=== PATIENT | male | born 1980 | race Caucasian/White ===

== ENCOUNTER 2018-04-13 06:40 | Observation (INO) ==
[2018-04-13 07:39] LABS: Basophils % 0.9 %; Eosinophils # 0.2 K/mcL (0.0-0.6); Eosinophils % 3.6 %; Hematocrit 51.9 % (37.5-50.1); Hemoglobin 17.3 g/dL (12.9-16.9); Immature Granulocytes % 0.2 % (0-4); Lymphocytes # 1.5 K/mcL (0.6-4.6); Lymphocytes % 32.3 %; Mean Corpuscular HGB Conc 33.3 g/dL (31.6-35.5); Mean Corpuscular Volume 90.1 fL (83.0-100.0); Mean Platelet Volume 10.4 fL (9.4-12.4); Monocytes # 0.3 K/mcL (0.0-1.3); Neutrophils # 2.6 K/mcL (1.6-8.9); Platelet Count 237 K/mcL (140-400); Red Blood Count 5.76 M/mcL (4.19-5.50); Red Cell Distribution Width 12.5 % (11.5-14.5)
--- NOTE | 2018-04-13 07:40 | Emergency Department Note ---
Disposition Clinical Impression: Nephrolithiasis, Hydroureteronephrosis, Allergy to antibiotic, Right distal ureteral calculus, UTI (urinary tract infection) Disposition: Admitted As Inpatient Condition: Fair General Adult HPI - General Chief complaint: ED Abdominal Pain Stated complaint: abd pain/rt hip/back pain Time Seen by Provider: 04/13/18 07:25 Source: patient Limitations: no limitations Nursing Notes Reviewed: Yes Vital Signs Reviewed: Yes - History of Present Illness HPI Narrative: 37 y/o male with history of nephrolithiasis presents to the ED after he woke from sleep three hours ago with suprapubic pain that has since begun to radiate to his right flank. Patient states that his pain is achy and rates it as 8/10 in severity. Patient states he fell well yesterday and has not had any abdominal surgeries in the past. He states that he has had several kidney stones in the past with the last occurring in 2012. Patient has history of depression and anxiety and states he has been compliant with his medications. Patient denies fevers, chills, sore throat, congestion, chest pain, dyspnea, urinary changes or discharge, bowel changes, nausea, vomiting. Onset (ago): hour(s) (3) Location: abdomen, pelvis Radiation: flank Pain Severity: severe Pain Scale: 9 Quality: aching Consistency: constant Improves with: nothing Worsens with: other (urination) Associated symptoms: Denies: chest pain, cough, diaphoresis, fever/chills, headaches, nausea/vomiting, shortness of breath, weakness Treatments Prior to Arrival: none - Related Data Home Medications Medication Instructions Recorded Confirmed Gabapentin [Neurontin] 800 mg PO TID 02/19/16 04/13/18 clonazePAM [Klonopin] 1 mg PO TID PRN 02/19/16 04/13/18 Duloxetine HCl [Cymbalta] 60 mg PO DAILY 04/13/18 04/13/18 RX: traZODone [TraZODone] 50 mg PO HS 04/13/18 04/13/18 Allergies Allergy/AdvReac Type Severity Reaction Status Date / Time ceftriaxone [From Rocephin] Allergy Itching Verified 04/13/18 10:23 Past Medical History - Past Medical History Medical history: Reports: non-contributory, kidney stones, other Psychiatric history: Reports: anxiety, depression, previous psychiatric hospitalization - Social History Smoking Status: Current some day smoker Smokeless Tobacco Status: No Alcohol use: Reports: none Drug use: Reports: marijuana Physical Exam - General Limitations: no limitations General appearance: alert, in no apparent distress Course Vital Signs Temperature 98.0 F 04/13/18 06:44 Pulse Rate 110 04/13/18 06:44 Respiratory Rate 18 04/13/18 06:44 Blood Pressure 118/79 04/13/18 06:44 O2 Sat by Pulse Oximetry 100 04/13/18 06:44 Temperature 98.0 F 04/13/18 06:44 Pulse Rate 110 04/13/18 06:44 Respiratory Rate 18 04/13/18 06:44 Blood Pressure 118/79 04/13/18 06:44 O2 Sat by Pulse Oximetry 100 04/13/18 06:44 Oxygen Delivery Oxygen Delivery Room Air Medical Decision Making - Lab Data Result diagrams: 04/13/18 07:13 04/13/18 07:13
[2018-04-13] MEDS ORDERED: Ketorolac 15 MG/ML VIAL IVP ONE (07:57)
--- NOTE | 2018-04-13 08:31 | Emergency Department Note ---
Disposition Clinical Impression: Nephrolithiasis, Hydroureteronephrosis, Allergy to antibiotic, Right distal ureteral calculus, UTI (urinary tract infection) Disposition: Admitted As Inpatient Condition: Fair Referrals: NONE,PCP [Primary Care Provider] - Time of Disposition: 10:36 Abdominal Pain HPI - General Chief Complaint: ED Abdominal Pain Stated Complaint: abd pain/rt hip/back pain Time Seen by Provider: 04/13/18 07:25 Source: patient Limitations: no limitations Vital Signs Reviewed: Yes (Tachycardic on presentation, Afebrile, normotensive, not tachypneic,) - History of Present Illness HPI Narrative: Is a 37-year-old male with past medical history of nephrolithiasis with his most recent stone in 2012 patient's to the ED from home with acute onset sharp suprapubic pain. Patient states the pain radiates to his right flank and is severe rating it at an 8 out of 10 with intermittent exacerbations with pain which is 10 out of 10. He says that the pain started proximally 4 AM this morning and woke him from his sleep. He states that his presentation is similar to his previous renal stones. He says in the past he has past 2-3 kidney stones however he has had one which required intervention however he cannot remember the exact intervention. He states the pain is when urinating, he has not noticed any hematuria at home however has had one episode of hematuria while in the ED today. He has not tried any medications for this at home. He denies any recent fevers, chills, nausea, vomiting, diarrhea, or constipation. He does report having one social partner 2 weeks ago that he used protection. Review of records is taken for anxiety, depression, and past suicidal ideation. Patient is on home Klonopin, Cymbalta, trazodone, and gabapentin and states that he has been taking his medications as prescribed. Pt Subjective Complaint: abdominal pain (ubic), flank pain (suprapubic pain) Onset (ago): hour(s) Consistency: constant Location: suprapubic Pain Severity: severe Pain Scale: 9 Quality: sharp Radiation: R flank Improves with: nothing Worsens with: movement, other (Urination) Context: history of similar episodes Treatments prior to arrival: none - Related Data Home Medications Medication Instructions Recorded Confirmed Gabapentin [Neurontin] 800 mg PO QID 02/19/16 02/19/16 clonazePAM [Klonopin] 1 mg PO TID PRN 02/19/16 02/19/16 Duloxetine HCl [Cymbalta] 60 mg PO DAILY 04/13/18 04/13/18 traZODone [TraZODone] 50 mg PO HS 04/13/18 04/13/18 Allergies Allergy/AdvReac Type Severity Reaction Status Date / Time ceftriaxone [From Rocephin] Allergy Itching Verified 04/13/18 10:23 Constitutional: Denies: fever, chills Eyes: Denies: vision change Cardiovascular: Denies: chest pain, dyspnea on exertion Respiratory: Denies: cough, dyspnea, wheezes Gastrointestinal: Denies: abdominal pain, nausea, vomiting, diarrhea, constipation Genitourinary: Reports: dysuria, hematuria Musculoskeletal: Reports: arthralgia Integumentary: Denies: rash Neurological: Denies: headache Psychiatric: Reports: anxiety, depression Abdominal Pain PMH - Past Medical History Medical history: Reports: non-contributory, kidney stones, other Male Surgical History: Reports: other Psychiatric history: Reports: anxiety, depression, previous psychiatric ho spitalization - Social History Smoking status: Current some day smoker Alcohol use: Reports: none Drug use: Reports: marijuana Physical Exam Constitutional: in moderate distress, tearful and in pain Cardiovascular: Regular rate and rhythm, no murmurs Respiratory: Lungs are clear to auscultation in all lung fagan, no rales rhonchi or wheezing. Abdomen: Positive bowel sounds, tenderness to palpation in the suprapubic and right lower quadrant with some guarding. CVA tenderness present on the right. Musculoskeletal: no midline spinal tenderness. Extremities: no pedal edema, pulses palpable in upper extremities Skin: No rashes or lesions on visible surfaces Psych: normal mood and affect - General Limitations: no limitations General appearance: alert, in no apparent distress Course Course Narrative: Patient was in significant pain upon arrival to the ED. Received Toradol which helped control his pain and it is currently described as an ache. Patient received a CT noncontrast which was infected and for a 5 mm stone in the right UVJ with mild hydroureteronephrosis. UA was positive for hematuria as well as positive nitrites. This along with CVA tenderness on physical exam raises concern for a possible infected stone. Patient received 2 g IV Rocephin and a call has been placed to urology to discuss admission. 9:29 Spoke with urology, Dr. Karan Evans, regarding the possibility of an infected stone. He states that we can admit the patient that he will see the patient. Request to make patient nothing by mouth. Ordering lactic acid and bolusing 2 L normal saline. Spoke to hospice regarding admission, hospitalist agrees. 9:55 Discussed with patient all imaging and lab results. Inform him of the possibility of a suspected infected stone for admission and IV antibiotics. Patient voices understanding and agrees to the plan. 10:17 Called by nurse to evaluate patient after patient received Rocephin. Patient states that he is having difficulty breathing with difficulty catching his breath and itching sensation in his throat as well as nasal congestion. He has not had any allergies to any medications in the past. States he feels well flushed, but no hives or edema. No history of allergies to any medicines. Patient is tachycardic, but no wheezing auscultated in exam, no urticaria, no facial swelling, no stridor, oropharynx is clear. will give benadryl and pepcid and reevaluate. Possible allergic reaction to ceftriaxone. 10:40 Improved after receiving Benadryl and Pepcid. Patient will be admitted to hospital. Vital Signs Temperature 98.0 F 04/13/18 06:44 Pulse Rate 110 04/13/18 06:44 Respiratory Rate 18 04/13/18 06:44 Blood Pressure 118/79 04/13/18 06:44 O2 Sat by Pulse Oximetry 100 04/13/18 06:44 Temperature 98.0 F 04/13/18 06:44 Pulse Rate 71 04/13/18 11:30 Respiratory Rate 20 04/13/18 11:30 Blood Pressure 125/86 04/13/18 11:30 O2 Sat by Pulse Oximetry 100 04/13/18 11:30 Oxygen Delivery Oxygen Delivery Room Air Abdominal Pain - MDM Narrative Medical decision making narrative: 37-year-old male with a past medical history of nephrolithiasis presenting to the ED to the onset sharp suprapubic pain radiating to the right flank. Well controlled with Toradol. CT scan significant for 5 mm stone in the right UVJ with mild hydroureteronephrosis. UA positive for nitrites. Concern for possible infected stone. Reviewed labs, medical records, and imaging. Patient will be admitted to the hospital with urology consult. Patient received 2 L fluid bolus and 2 g Rocephin 1 ED. After receiving Rocephin patient complained of acute onset nasal congestion, flushing, and an itching sensation in his throat. Physical exam findings do not reveal any evidence for an acute anaphylactic reaction, however it is possible the patient is experiencing an allergic reaction to that antibiotic. Patient received pepcid and benadryl. Symptoms improved after receiving Benadryl. Patient was admitted to the hospital. - Differential Diagnosis Differential Diagnosis: Likely: calculus of kidney - Medical Records Medical records reviewed: Yes I reviewed the patient's medical records. - Lab Data Lab results reviewed: Yes I reviewed the patient's lab results. Result diagrams: 04/13/18 07:13 04/13/18 07:13 Lab Results 04/13/18 04/13/18 04/13/18 Range/Units 07:13 07:13 08:36 WBC 4.5 (4.3-11.1) K/mcL RBC 5.76 H (4.19-5.50) M/mcL Hgb 17.3 H (12.9-16.9) g/dL Hct 51.9 H (37.5-50.1) % MCV 90.1 (83.0-100.0) fL MCH 30.0 (28.0-33.3) pg MCHC 33.3 (31.6-35.5) g/dL RDW 12.5 (11.5-14.5) % Plt Count 237 (140-400) K/mcL MPV 10.4 (9.4-12.4) fL Immature Gran % 0.2 (0-4) % Seg Neutrophils % 57.0 % Lymphocytes % 32.3 % Monocytes % 6.0 % Eosinophils % 3.6 % Basophils % 0.9 % Neutrophils # 2.6 (1.6-8.9) K/mcL Lymphocytes # 1.5 (0.6-4.6) K/mcL Monocytes # 0.3 (0.0-1.3) K/mcL Eosinophils # 0.2 (0.0-0.6) K/mcL Basophils # 0.0 (0.0-0.2) K/mcL Sodium 140 (136-145) mEq/L Potassium 3.7 (3.5-5.1) mEq/L Chloride 101 (98-107) mEq/L Carbon Dioxide 29 (23-29) mEq/L BUN 20 (6-20) mg/dL Creatinine 1.13 (0.70-1.30) mg/dL Est GFR ( Amer) > 60 (> 60) Est GFR (Non-Af Amer) > 60 (> 60) BUN/Creatinine Ratio 18 (6-26) Glucose 96 (70-105) mg/dL Calculated Osmolality 292 (280-300) Lactic Acid (0.5-2.2) mmol/L Calcium 9.7 (8.6-10.3) mg/dL Total Bilirubin 0.9 (0.3-1.0) mg/dL Direct Bilirubin 0.2 (0.0-0.2) mg/dL Indirect Bilirubin 0.7 (0.0-1.2) mg/dL AST 16 (13-39) Units/L ALT 13 (7-52) Units/L Alkaline Phosphatase 68 (34-104) Units/L Serum Total Protein 7.9 (6.4-8.9) g/dL Albumin 4.9 (3.5-5.7) g/dL Globulin 3.0 (2.4-3.5) g/dL Albumin/Globulin Ratio 1.6 (1.1-2.2) Amylase 24 L (29-103) Units/L Lipase 19 (11-82) Units/L Urine Color Red A (Yellow) Urine Clarity Turbid A (Clear) Urine pH 7.0 (5.0-8.0) pH Units Ur Specific [place] 1.027 H (1.010-1.025) Urine Protein 100 H (Neg-Trace) mg/dL Urine Glucose (UA) Normal (Normal) mg/dL Urine Ketones 40 H (Negative) mg/dL Urine Blood Large H (Negative) Urine Nitrite Positive A (Negative) Urine Bilirubin Moderate H (Negative) Urine Urobilinogen Normal (Normal) mg/dL Ur Leukocyte Esterase Small H (Negative) Ur Culture Indicated? YES A (NO) 04/13/18 Range/Units 10:01 WBC (4.3-11.1) K/mcL RBC (4.19-5.50) M/mcL Hgb (12.9-16.9) g/dL Hct (37.5-50.1) % MCV (83.0-100.0) fL MCH (28.0-33.3) pg MCHC (31.6-35.5) g/dL RDW (11.5-14.5) % Plt Count (140-400) K/mcL MPV (9.4-12.4) fL Immature Gran % (0-4) % Seg Neutrophils % % Lymphocytes % % Monocytes % % Eosinophils % % Basophils % % Neutrophils # (1.6-8.9) K/mcL Lymphocytes # (0.6-4.6) K/mcL Monocytes # (0.0-1.3) K/mcL Eosinophils # (0.0-0.6) K/mcL Basophils # (0.0-0.2) K/mcL Sodium (136-145) mEq/L Potassium (3.5-5.1) mEq/L Chloride (98-107) mEq/L Carbon Dioxide (23-29) mEq/L BUN (6-20) mg/dL Creatinine (0.70-1.30) mg/dL Est GFR ( Amer) (> 60) Est GFR (Non-Af Amer) (> 60) BUN/Creatinine Ratio (6-26) Glucose (70-105) mg/dL Calculated Osmolality (280-300) Lactic Acid 0.7 (0.5-2.2) mmol/L Calcium (8.6-10.3) mg/dL Total Bilirubin (0.3-1.0) mg/dL Direct Bilirubin (0.0-0.2) mg/dL Indirect Bilirubin (0.0-1.2) mg/dL AST (13-39) Units/L ALT (7-52) Units/L Alkaline Phosphatase (34-104) Units/L Serum Total Protein (6.4-8.9) g/dL Albumin (3.5-5.7) g/dL Globulin (2.4-3.5) g/dL Albumin/Globulin Ratio (1.1-2.2) Amylase (29-103) Units/L Lipase (11-82) Units/L Urine Color (Yellow) Urine Clarity (Clear) Urine pH (5.0-8.0) pH Units Ur Specific [place] (1.010-1.025) Urine Protein (Neg-Trace) mg/dL Urine Glucose (UA) (Normal) mg/dL Urine Ketones (Negative) mg/dL Urine Blood (Negative) Urine Nitrite (Negative) Urine Bilirubin (Negative) Urine Urobilinogen (Normal) mg/dL Ur Leukocyte Esterase (Negative) Ur Culture Indicated? (NO) - Radiology Data Radiology results reviewed: Yes I reviewed the patient's radiology results.
--- NOTE | 2018-04-13 08:44 | Emergency Department Note ---
Addendum entered and electronically signed by Lidya Lane 04/14/18 10:58: Original Note: Disposition Clinical Impression: Nephrolithiasis, Hydroureteronephrosis, Allergy to antibiotic, Right distal ureteral calculus, UTI (urinary tract infection) Disposition: Admitted As Inpatient Condition: Fair General Adult HPI - General Chief complaint: ED Abdominal Pain Stated complaint: abd pain/rt hip/back pain Time Seen by Provider: 04/13/18 07:25 Source: patient Limitations: no limitations - History of Present Illness Location: abdomen, pelvis Pain Scale: 9 Quality: aching Improves with: nothing Worsens with: other (urination) Associated symptoms: Denies: chest pain, cough, diaphoresis, fever/chills, headaches, nausea/vomiting, shortness of breath, weakness Treatments Prior to Arrival: none - Related Data Home Medications Medication Instructions Recorded Confirmed Gabapentin [Neurontin] 800 mg PO TID 02/19/16 04/13/18 clonazePAM [Klonopin] 1 mg PO TID PRN 02/19/16 04/13/18 Duloxetine HCl [Cymbalta] 60 mg PO DAILY 04/13/18 04/13/18 traZODone [TraZODone] 50 mg PO HS 04/13/18 04/13/18 Allergies Allergy/AdvReac Type Severity Reaction Status Date / Time ceftriaxone [From Rocephin] Allergy Itching Verified 04/13/18 10:23 Past Medical History - Past Medical History Medical history: Reports: non-contributory, kidney stones, other Psychiatric history: Reports: anxiety, depression, previous psychiatric hospitalization - Social History Smoking Status: Current some day smoker Smokeless Tobacco Status: No Alcohol use: Reports: none Drug use: Reports: marijuana Physical Exam - General Limitations: no limitations General appearance: alert, in no apparent distress Course Vital Signs Temperature 98.0 F 04/13/18 06:44 Pulse Rate 110 04/13/18 06:44 Respiratory Rate 18 04/13/18 06:44 Blood Pressure 118/79 04/13/18 06:44 O2 Sat by Pulse Oximetry 100 04/13/18 06:44 Temperature 98.0 F 04/13/18 06:44 Pulse Rate 71 04/13/18 11:30 Respiratory Rate 20 04/13/18 11:30 Blood Pressure 125/86 04/13/18 11:30 O2 Sat by Pulse Oximetry 100 04/13/18 11:30 Oxygen Delivery Oxygen Delivery Room Air Medical Decision Making - Medical Records Medical records reviewed: Yes I reviewed the patient's medical records. - Lab Data Lab results reviewed: Yes I reviewed the patient's lab results. Result diagrams: 04/13/18 07:13 04/13/18 07:13 Lab Results 04/13/18 04/13/18 04/13/18 Range/Units 07:13 07:13 08:36 WBC 4.5 (4.3-11.1) K/mcL RBC 5.76 H (4.19-5.50) M/mcL Hgb 17.3 H (12.9-16.9) g/dL Hct 51.9 H (37.5-50.1) % MCV 90.1 (83.0-100.0) fL MCH 30.0 (28.0-33.3) pg MCHC 33.3 (31.6-35.5) g/dL RDW 12.5 (11.5-14.5) % Plt Count 237 (140-400) K/mcL MPV 10.4 (9.4-12.4) fL Immature Gran % 0.2 (0-4) % Seg Neutrophils % 57.0 % Lymphocytes % 32.3 % Monocytes % 6.0 % Eosinophils % 3.6 % Basophils % 0.9 % Neutrophils # 2.6 (1.6-8.9) K/mcL Lymphocytes # 1.5 (0.6-4.6) K/mcL Monocytes # 0.3 (0.0-1.3) K/mcL Eosinophils # 0.2 (0.0-0.6) K/mcL Basophils # 0.0 (0.0-0.2) K/mcL Sodium 140 (136-145) mEq/L Potassium 3.7 (3.5-5.1) mEq/L Chloride 101 (98-107) mEq/L Carbon Dioxide 29 (23-29) mEq/L BUN 20 (6-20) mg/dL Creatinine 1.13 (0.70-1.30) mg/dL Est GFR ( Amer) > 60 (> 60) Est GFR (Non-Af Amer) > 60 (> 60) BUN/Creatinine Ratio 18 (6-26) Glucose 96 (70-105) mg/dL Calculated Osmolality 292 (280-300) Lactic Acid (0.5-2.2) mmol/L Calcium 9.7 (8.6-10.3) mg/dL Total Bilirubin 0.9 (0.3-1.0) mg/dL Direct Bilirubin 0.2 (0.0-0.2) mg/dL Indirect Bilirubin 0.7 (0.0-1.2) mg/dL AST 16 (13-39) Units/L ALT 13 (7-52) Units/L Alkaline Phosphatase 68 (34-104) Units/L Serum Total Protein 7.9 (6.4-8.9) g/dL Albumin 4.9 (3.5-5.7) g/dL Globulin 3.0 (2.4-3.5) g/dL Albumin/Globulin Ratio 1.6 (1.1-2.2) Amylase 24 L (29-103) Units/L Lipase 19 (11-82) Units/L Urine Color Red A (Yellow) Urine Clarity Turbid A (Clear) Urine pH 7.0 (5.0-8.0) pH Units Ur Specific [place] 1.027 H (1.010-1.025) Urine Protein 100 H (Neg-Trace) mg/dL Urine Glucose (UA) Normal (Normal) mg/dL Urine Ketones 40 H (Negative) mg/dL Urine Blood Large H (Negative) Urine Nitrite Positive A (Negative) Urine Bilirubin Moderate H (Negative) Urine Urobilinogen Normal (Normal) mg/dL Ur Leukocyte Esterase Small H (Negative) Ur Culture Indicated? YES A (NO) 04/13/18 Range/Units 10:01 WBC (4.3-11.1) K/mcL RBC (4.19-5.50) M/mcL Hgb (12.9-16.9) g/dL Hct (37.5-50.1) % MCV (83.0-100.0) fL MCH (28.0-33.3) pg MCHC (31.6-35.5) g/dL RDW (11.5-14.5) % Plt Count (140-400) K/mcL MPV (9.4-12.4) fL Immature Gran % (0-4) % Seg Neutrophils % % Lymphocytes % % Monocytes % % Eosinophils % % Basophils % % Neutrophils # (1.6-8.9) K/mcL Lymphocytes # (0.6-4.6) K/mcL Monocytes # (0.0-1.3) K/mcL Eosinophils # (0.0-0.6) K/mcL Basophils # (0.0-0.2) K/mcL Sodium (136-145) mEq/L Potassium (3.5-5.1) mEq/L Chloride (98-107) mEq/L Carbon Dioxide (23-29) mEq/L BUN (6-20) mg/dL Creatinine (0.70-1.30) mg/dL Est GFR ( Amer) (> 60) Est GFR (Non-Af Amer) (> 60) BUN/Creatinine Ratio (6-26) Glucose (70-105) mg/dL Calculated Osmolality (280-300) Lactic Acid 0.7 (0.5-2.2) mmol/L Calcium (8.6-10.3) mg/dL Total Bilirubin (0.3-1.0) mg/dL Direct Bilirubin (0.0-0.2) mg/dL Indirect Bilirubin (0.0-1.2) mg/dL AST (13-39) Units/L ALT (7-52) Units/L Alkaline Phosphatase (34-104) Units/L Serum Total Protein (6.4-8.9) g/dL Albumin (3.5-5.7) g/dL Globulin (2.4-3.5) g/dL Albumin/Globulin Ratio (1.1-2.2) Amylase (29-103) Units/L Lipase (11-82) Units/L Urine Color (Yellow) Urine Clarity (Clear) Urine pH (5.0-8.0) pH Units Ur Specific [place] (1.010-1.025) Urine Protein (Neg-Trace) mg/dL Urine Glucose (UA) (Normal) mg/dL Urine Ketones (Negative) mg/dL Urine Blood (Negative) Urine Nitrite (Negative) Urine Bilirubin (Negative) Urine Urobilinogen (Normal) mg/dL Ur Leukocyte Esterase (Negative) Ur Culture Indicated? (NO) - Radiology Data Radiology results reviewed: Yes I reviewed the patient's radiology results. Attestation Statement - Attestation Attestation: I examined this patient and my medical decision-making was reviewed with the YIELD CLERK/PA/Advanced Practice Nurse/Resident Physician. I agree with the documented findings, disposition and treatment plan as described except to the extent set forth below. I did see the patient is spoke with him and examine him and he does have a history of ureteral stones with stent placement and does not know the name of his urologist. Does have right suprapubic abdomen right lower pelvic pain. I did examine the testicles without any swelling or erythema. No hernias. Patient has minimal pain at McBurney's point. Negative Rovsing sign. CT scan and urine are pending [id number] Urine does show positive nitrite and with the patient having a ureteral stone with some obstruction will be admitted. We did write for 2 g of Rocephin however the patient did at that time developed flushing and feeling of itching the throat and nasal congestion but no drooling or stridor so the patient was given Benadryl 50 mg IV and Pepcid 40 mg IV and the Rocephin will be stopped an adequate history allergy list and the patient will be switched to receive IV Levaquin 750 mg IV. The patient was accepted for admission by the urologist. [id number]
[2018-04-13 08:53] LABS: Alanine Aminotransferase 13 Units/L (7-52); Albumin 4.9 g/dL (3.5-5.7); Albumin/Globulin Ratio 1.6 (1.1-2.2); Alkaline Phosphatase 68 Units/L (34-104); Amylase 24 Units/L (29-103); Aspartate Amino Transferase 16 Units/L (13-39); BUN/Creatinine Ratio 18 (6-26); Bilirubin,Direct 0.2 mg/dL (0.0-0.2); Bilirubin,Indirect 0.7 mg/dL (0.0-1.2); Bilirubin,Total 0.9 mg/dL (0.3-1.0); Blood Urea Nitrogen 20 mg/dL (6-20); Calcium 9.7 mg/dL (8.6-10.3); Carbon Dioxide 29 mEq/L (23-29); Chloride 101 mEq/L (98-107); Glucose 96 mg/dL (70-105); Lipase 19 Units/L (11-82); Osmolality,Calculated 292 (280-300); Potassium 3.7 mEq/L (3.5-5.1); Sodium 140 mEq/L (136-145); Total Protein 7.9 g/dL (6.4-8.9); eGFR For Non-African Americans > 60 (> 60)
[2018-04-13 08:54] LABS: Bilirubin,Urine Moderate (Negative); Blood,Urine Large (Negative); Clarity,Urine Turbid (Clear); Color,Urine Red (Yellow); Glucose,Urine (UA) Normal (Normal); Ketones,Urine 40 mg/dL (Negative); Leukocyte Esterase,Urine Small (Negative); Nitrite,Urine Positive (Negative); Protein,Urine 100 mg/dL (Neg-Trace); Specific Gravity,Urine 1.027 (1.010-1.025); Urobilinogen,Urine Normal (Normal)
[2018-04-13] MEDS ORDERED: cefTRIAXone 2,000 MG in Water for inj. (sterile) 20 ML 20 ML IVP ONE (09:26)
[2018-04-13] MEDS: 0.9 % Sodium Chloride 1,000 ML IVC SCH ×3 (10:05→22:04)
[2018-04-13] MEDS ORDERED: Famotidine 20 MG/2 ML VIAL IVP ONE (10:24)
--- NOTE | 2018-04-13 10:30 | Urology - Consult Note ---
Addendum entered and electronically signed by Karan Evans MD 04/13/18 16:46: Patient seen and examined with the PA. Agree with assessment and plan. He has a right distal ureteral stone. Plan for right ureteroscopy, laser lithotripsy, and stent placement. All risks were informed. He is willing to proceed. Original Note: Date of Encounter: 04/13/18 Time of Encounter: 10:27 - Assessment and Plan (1) Nephrolithiasis Current Visit: Yes Status: Acute (2) Right distal ureteral calculus Current Visit: Yes Status: Acute Assessment and plan: Patient is a 37 year old male who presents with a history of a 5mm distal right ureteral stone and mild hydronephrosis. Discussed surgical risks and benefits with patient including, bleeding, infection, scarring or stricture, damage to surrounding structures, anesthesia effects, failure to extract stone definitively. Patient verbalizes understanding, consent has been signed, and he wishes to proceed with cystoscopy, right ureteral stent placement, ureteroscopic stone extracton. Patient will remain NPO. Urology CN:HPI Consult date: 04/13/18 Reason for consult Urology: Other (right distal ureteral stone) History of present illness: Patient is a 37 year old male who presents with a history of a distal right ureteral stone. Patient has a longstanding history of recurrent nephrolithiasis with last stone occurring in 2012. Patient has undergone ureteroscopic stone extraction in the past and has passed stones by medical expulsion. Patient has a significant family history of nephrolithiasis through his sister and father. Patient reports feeling right flank pain worsening in intensity and accompanied with dysuria and gross hematuria. Patient denies fever, chills, nausea or vomiting. Patient underwent CT abdomen and pelvis revealing distal right 5mm ureteral stone with mild hydronephrosis and bilateral non obstructing nephrolithiasis. Past Med Surg Social Fam HX - Past Medical History Medical history: non-contributory, kidney stones, other Additional medical history: hip surgery, back problemws Psychiatric history: anxiety, depression, previous psychiatric hospitalization - Past Surgical History Additional surgical history: lithotripsy, right hip surgery - Social History Smoking Status: Current some day smoker Smokeless Tobacco Status: No Alcohol use: none Drug use: marijuana Medications and Allergies Gabapentin [Neurontin] 800 mg PO QID 02/19/16 [History] OXcarbazepine [Trileptal] 600 mg PO BID 02/19/16 [History] Tizanidine HCl [Zanaflex] 4 mg PO BID 02/19/16 [History] clonazePAM [Klonopin] 1 mg PO TID PRN 02/19/16 [History] Nitrofurantoin (BID) [Macrobid] 100 mg PO BID #14 capsule 10/29/16 [Rx] Phenazopyridine HCl 200 mg PO TID PRN #30 tablet 10/29/16 [Rx] Albuterol Sulfate [Albuterol Inhaler] 1 - 2 puff IH Q6HR PRN #1 hfa.aer.ad 03/11/17 [Rx] Sulfamethoxazole/Trimeth DS [Bactrim DS] 1 each PO BID #28 tablet 09/07/17 [Rx] Allergy/AdvReac Type Severity Reaction Status Date / Time ceftriaxone [From Rocephin] Allergy Itching Verified 04/13/18 10:23 Review of Systems - Constitutional no chills, no fatigue, no fever(s) - EENT Nose, mouth and throat: no dizziness, no headache(s), no sore throat - Cardiovascular no chest pain, no diaphoresis - Respiratory no cough, no dyspnea - Gastrointestinal abdominal pain, no nausea, no vomiting - Genitourinary difficulty urinating, dysuria, flank pain, hematuria, urinary frequency, urinary hesitancy, urinary urgency - Musculoskeletal no back pain, no muscle weakness - Integumentary no erythema, no rash, no swelling - Neurological no confusion, no syncope - Psychiatric no anxiety, no confusion - Hematologic/Lymphatic no easy bleeding, no easy bruising - Allergic/Immunologic no throat swelling, no wheezing Exam Initial Vital Signs Temp Pulse Resp BP Pulse Ox 98.0 F 110 18 118/79 100 04/13/18 06:44 04/13/18 06:44 04/13/18 06:44 04/13/18 06:44 04/13/18 06:44 - General physical appearance Present: well developed, no distress, moderate pain - Eyes Present: PERRL, normal ocular movement - ENT Present: normal nares, no hearing loss. Absent: no congestion - Neck Present: no masses, trachea midline - Respiratory Present: normal respiratory effort - Cardiovascular Cardiovascular exam IM: RRR - Abdomen Abdomen: Present: soft, tender (right cvat) - Integumentary Present: no rash, no abnormal pigmentation - Neurologic Present: normal coordination - Musculoskeletal Present: other (normal posture ) Urology Results - Labs 04/13/18 07:13 04/13/18 07:13 Abnormal lab results RBC 5.76 M/mcL (4.19-5.50) H 04/13/18 07:13 Hgb 17.3 g/dL (12.9-16.9) H 04/13/18 07:13 Hct 51.9 % (37.5-50.1) H 04/13/18 07:13 Amylase 24 Units/L (29-103) L 04/13/18 07:13 Urine Color Red (Yellow) A 04/13/18 08:36 Urine Clarity Turbid (Clear) A 04/13/18 08:36 Ur Specific [place] 1.027 (1.010-1.025) H 04/13/18 08:36 Urine Protein 100 mg/dL (Neg-Trace) H 04/13/18 08:36 Urine Ketones 40 mg/dL (Negative) H 04/13/18 08:36 Urine Blood Large (Negative) H 04/13/18 08:36 Urine Nitrite Positive (Negative) A 04/13/18 08:36 Urine Bilirubin Moderate (Negative) H 04/13/18 08:36 Ur Leukocyte Esterase Small (Negative) H 04/13/18 08:36 Ur Culture Indicated? YES (NO) A 04/13/18 08:36 Diabetes panel 04/13/18 Range/Units 07:13 Sodium 140 (136-145) mEq/L Potassium 3.7 (3.5-5.1) mEq/L Chloride 101 (98-107) mEq/L Carbon Dioxide 29 (23-29) mEq/L BUN 20 (6-20) mg/dL Creatinine 1.13 (0.70-1.30) mg/dL Glucose 96 (70-105) mg/dL Calcium 9.7 (8.6-10.3) mg/dL AST 16 (13-39) Units/L ALT 13 (7-52) Units/L Alkaline Phosphatase 68 (34-104) Units/L Albumin 4.9 (3.5-5.7) g/dL Calcium panel 04/13/18 Range/Units 07:13 Calcium 9.7 (8.6-10.3) mg/dL Albumin 4.9 (3.5-5.7) g/dL Pituitary panel 04/13/18 Range/Units 07:13 Sodium 140 (136-145) mEq/L Potassium 3.7 (3.5-5.1) mEq/L Chloride 101 (98-107) mEq/L Carbon Dioxide 29 (23-29) mEq/L BUN 20 (6-20) mg/dL Creatinine 1.13 (0.70-1.30) mg/dL Glucose 96 (70-105) mg/dL Calcium 9.7 (8.6-10.3) mg/dL Adrenal panel 04/13/18 Range/Units 07:13 Sodium 140 (136-145) mEq/L Potassium 3.7 (3.5-5.1) mEq/L Chloride 101 (98-107) mEq/L Carbon Dioxide 29 (23-29) mEq/L BUN 20 (6-20) mg/dL Creatinine 1.13 (0.70-1.30) mg/dL Glucose 96 (70-105) mg/dL Calcium 9.7 (8.6-10.3) mg/dL Total Bilirubin 0.9 (0.3-1.0) mg/dL AST 16 (13-39) Units/L ALT 13 (7-52) Units/L Alkaline Phosphatase 68 (34-104) Units/L Albumin 4.9 (3.5-5.7) g/dL All other labs normal. - Imaging CT scan - abdomen: report reviewed, image reviewed CT scan - pelvis: report reviewed, image reviewed Consult Discharge Plan - Plan Referrals: NONE,PCP [Primary Care Provider] -
[2018-04-13] MEDS ORDERED: Naloxone 0.4 MG/ML INJ IVP PRN ×2 (10:51→18:21)
[2018-04-13] MEDS ORDERED: clonazePAM 1 MG TABLET PO PRN ×2 (10:53→18:21)
[2018-04-13] MEDS ORDERED: 0.9 % Sodium Chloride 1,000 ML IVC SCH (11:00)
--- NOTE | 2018-04-13 12:21 | Internal Med History&Physical ---
Date of Encounter: 04/13/18 Time of Encounter: 10:00 Internal Medicine - H&P: HPI Chief complaint: Suprapubic pain Admitted From: Home Plans for Post Hospital Care: Home History of present illness: Patient is a 37-year-old male with past medical history significant for mood disorder and prior nephrolithiasis who presents to the ER on 04/13/18 due to suprapubic/right flank pain. Patient reports that he was awoken at 4 AM this morning due to suprapubic pain which he describes as achy which radiates to his right flank with urination. Patient denies any relieving factors and denies any fever/chills or nausea/vomiting. Patient did report of gross hematuria. Patient came to the ER for evaluation. In the ER, CT of the abdomen/pelvis showed a 5 mm distal right ureteral calculus causing mild proximal hydroureteronephrosis. Urology was consulted from the ER with recommendations to proceed with cystoscopy with right ureteral stent placement and uteroscopic stone extraction. Past Med Surg Social Fam HX - Past Medical History Medical history: non-contributory, kidney stones, other Additional medical history: hip surgery, back problemws Psychiatric history: anxiety, depression, previous psychiatric hospitalization - Past Surgical History Additional surgical history: lithotripsy, right hip surgery - Social History Smoking Status: Current some day smoker Smokeless Tobacco Status: No Alcohol use: none Drug use: marijuana - Additional Family History Additional family history: sister- Skin Ca Internal Medicine - H&P: Meds Gabapentin [Neurontin] 800 mg PO TID 02/19/16 [History] clonazePAM [Klonopin] 1 mg PO TID PRN 02/19/16 [History] Duloxetine HCl [Cymbalta] 60 mg PO DAILY 04/13/18 [History] traZODone [TraZODone] 50 mg PO HS 04/13/18 [History] Allergy/AdvReac Type Severity Reaction Status Date / Time ceftriaxone [From Rocephin] Allergy Itching Verified 04/13/18 10:23 All Systems PM: A 10-system review of systems was performed and is negative for pertinent findings except as documented above in the HPI. - Constitutional Vitals: Temp Pulse Resp BP Pulse Ox 98.5 F 65 18 122/77 99 04/13/18 12:07 04/13/18 12:07 04/13/18 12:07 04/13/18 12:07 04/13/18 12:07 Exam: As above - Head Head exam: Present: normocephalic - Eye Eye exam: Present: normal appearance - Respiratory Respiratory exam: Present: CTAB. Absent: accessory muscle use, rales, rhonchi, wheezes - Cardiovascular Cardiovascular exam: Present: RRR, +S1, +S2. Absent: diastolic murmur, gallop, rubs, systolic murmur - GI/Abdominal GI/Abdominal exam: Present: soft - Extremities Exam Extremities exam: Absent: pedal edema - Neurological Exam Neurological exam: Present: oriented X3 - Psychiatric Psychiatric exam: Present: normal mood - Skin Skin exam: Present: normal color Internal Med - H&P Results - Labs CBC & Chem 7: 04/13/18 07:13 04/13/18 07:13 Labs: Short CBC 04/13/18 Range/Units 07:13 WBC 4.5 (4.3-11.1) K/mcL Hgb 17.3 H (12.9-16.9) g/dL Hct 51.9 H (37.5-50.1) % Plt Count 237 (140-400) K/mcL Neutrophils # 2.6 (1.6-8.9) K/mcL BMP 04/13/18 07:13 Sodium 140 Potassium 3.7 Chloride 101 Carbon Dioxide 29 BUN 20 Creatinine 1.13 Glucose 96 Calcium 9.7 Liver Function 04/13/18 Range/Units 07:13 Total Bilirubin 0.9 (0.3-1.0) mg/dL Direct Bilirubin 0.2 (0.0-0.2) mg/dL AST 16 (13-39) Units/L ALT 13 (7-52) Units/L Alkaline Phosphatase 68 (34-104) Units/L Albumin 4.9 (3.5-5.7) g/dL Urine 04/13/18 Range/Units 08:36 Urine Color Red A (Yellow) Urine Clarity Turbid A (Clear) Urine pH 7.0 (5.0-8.0) pH Units Ur Specific [place] 1.027 H (1.010-1.025) Urine Protein 100 H (Neg-Trace) mg/dL Urine Glucose (UA) Normal (Normal) mg/dL - Impressions ITS Impressions Abdomen/Pelvis CT 04/13/18 07:43 IMPRESSION: 1. 5 mm distal right ureteral calculus causing mild proximal hydroureteronephrosis. 2. There are additional bilateral nonobstructing renal calculi. D/ / Karan Salgado / Karan Salgado Interpreting Provider: Karan Salgado - Assessment and plan (1) Right distal ureteral calculus Current Visit: Yes Status: Acute Assessment and plan: In the ER, CT of the abdomen/pelvis showed a 5 mm distal right ureteral calculus causing mild proximal hydroureteronephrosis. Urology was consulted from the ER with recommendations to proceed with cystoscopy with right ureteral stent placement and uteroscopic stone extraction. (2) Hydroureteronephrosis Current Visit: Yes Status: Acute Assessment and plan: Imaging findings as above on CT of the abdomen/pelvis Management as above (3) Allergy to antibiotic Current Visit: Yes Status: Acute Assessment and plan: Patient apparently had a allergic reaction after administration of ceftriaxone with itching (4) Mood disorder Current Visit: No Status: Acute Assessment and plan: Continue home medications - Time Spent With Patient Total time spent is greater than 50% in coordination of care (as documented) at patient's floor/unit and/or counseling patient: - VTE Reasons for not Prescribing Prophylaxis: Treatment not Indicated - Low risk for VTE
[2018-04-13] MEDS ORDERED: Gabapentin 400 MG CAPSULE PO SCH (15:00)
[2018-04-13] MEDS ORDERED: *HR* FentaNYL (PF) 100 MCG/2 ML VIAL ONE (15:56)
[2018-04-13] MEDS ORDERED: *HR* Midazolam HCl 2 MG/2 ML VIAL ONE (15:56)
[2018-04-13] MEDS ORDERED: Lidocaine -MPF 2% 2 ML VIAL ONE (15:57)
[2018-04-13] MEDS ORDERED: *HR* Propofol 200 MG/20 ML VIAL IVP ONE (15:57)
--- NOTE | 2018-04-13 16:20 | Anesthesia Evaluation PreOp ---
Date of Encounter: 04/13/18 Time of Encounter: 16:18 - Past History Planned Operation: RIGHT USE, STENT PLACEMENT Cardiac History: Denies any Significant Hx Pulmonary History: Smoker (SMOKES PIPE) [employer] History: Other (MAJOR DEPRESSION, ANXIETY, CHRONIC BACK PAIN) Other Medical History: Renal (KIDNEY STONES) Anesthesia History: No Prior Anesthetic Complications, Past Anesthesia Alcohol Use: none Drug use: marijuana Medications and Allergies Gabapentin [Neurontin] 800 mg PO TID 02/19/16 [History] clonazePAM [Klonopin] 1 mg PO TID PRN 02/19/16 [History] Duloxetine HCl [Cymbalta] 60 mg PO DAILY 04/13/18 [History] traZODone [TraZODone] 50 mg PO HS 04/13/18 [History] Allergy/AdvReac Type Severity Reaction Status Date / Time ceftriaxone [From Rocephin] Allergy Itching Verified 04/13/18 10:23 - Meds/Allergy Pre-op Review Medications Reviewed: Yes Allergies Reviewed: Yes Beta Blockers on Current Med List: No Anesthesia Results - Labs 04/13/18 07:13 04/13/18 07:13 Anesthesia Exam Vital Signs/O2 Sat, Most Current Temp Pulse Resp BP Pulse Ox 98.1 F 74 19 106/69 96 04/13/18 15:40 04/13/18 15:40 04/13/18 15:40 04/13/18 15:40 04/13/18 15:40 Weight: 77 KG - BMI 22 NPO (# of Hours): 8 - HEENT Mallampati: I Teeth: Normal Oral Opening: Greater than 3 - Cardiac Rhythm: Regular - Pulmonary Breath Sounds: bilateral Clear Respiratory Effort: Symmetrical - Additional Findings Active Medications Clonazepam (Klonopin) 1 mg PO TID PRN PRN Reason: Anxiety Stop: 10/13/18 10:54 Duloxetine HCl (Cymbalta) 60 mg PO DAILY [facility]AY Stop: 10/14/18 09:01 Gabapentin (Neurontin) 800 mg PO TID [facility]AY Stop: 10/13/18 15:01 Last Admin: 04/13/18 14:06 Dose: 800 mg Sodium Chloride (0.9 % Sodium Chloride) 1,000 mls @ 75 mls/hr IVC .[id number] CHAY Stop: 04/14/18 13:39 Last Admin: 04/13/18 12:45 Dose: 75 mls/hr Naloxone HCl (Narcan) 0.4 mg IVP Q2MIN PRN PRN Reason: SEE COMMENTS Stop: 10/13/18 10:52 Trazodone HCl (Trazodone) 50 mg PO HS [facility] Stop: 10/13/18 21:01 MAR Administrations Gabapentin (Neurontin) 800 mg PO TID CHAY Stop: 10/13/18 15:01 Last Admin: 04/13/18 14:06 Dose: 800 mg Diphenhydramine HCl (Benadryl) 50 mg IVP ONCE ONE Stop: 04/13/18 10:24 Last Admin: 04/13/18 10:30 Dose: 50 mg Famotidine (Pepcid) 20 mg IVP ONCE ONE; Protocol Stop: 04/13/18 10:25 Last Admin: 04/13/18 10:30 Dose: 20 mg Ceftriaxone Sodium 2,000 mg/ (Sterile Water) 20 mls @ 600 mls/hr IVP ONCE ONE Stop: 04/13/18 09:27 Last Infusion: 04/13/18 10:08 Dose: 0 mls/hr Admin: 04/13/18 10:05 Dose: 600 mls/hr Ketorolac Tromethamine (Toradol) 10 mg IVP ONCE ONE Stop: 04/13/18 07:58 Last Admin: 04/13/18 08:33 Dose: 10 mg Anesthesia Assess/Plan ASA Score: 3 Anesthetic Plan: General Monitoring Plan: Standard Monitors Recovery Plan: PACU Anes Supervising Prov Stmt: Patient informed and consented. Risks, benefits, and alternatives discussed. Patient wishes to proceed.
[2018-04-13] MEDS ORDERED: *HR* Morphine 2 MG/ML SYRINGE IVP PRN (17:22)
[2018-04-13] MEDS ORDERED: *HR* OxyCODONE/APAP 5/325 TABLET PO PRN ×2 (17:22→18:21)
--- NOTE | 2018-04-13 17:36 | Operative Note ---
Date of procedure: 04/13/18 Pre-op diagnosis: Right distal ureteral stone Post-op diagnosis: same Procedure: Right ureteroscopy, laser lithotripsy, basket stone extraction, and stent placement Implants: 4.8-Ukrainian by 28 cm double-J stent Complications: None Anesthesia: GETA Surgeon: Karan Evans Was there an library media assistant present: No Estimated blood loss (cc): 0 Specimen: None Condition: stable Disposition: PACU Procedure in Detail: Indications: Mr. Hodge is a 37-year-old gentleman who has a history of right flank pain. A CT scan showed a 5 mm stone in the distal right ureter. He elected to undergo a right ureteroscopy, laser lithotripsy, and stent placement. He is aware of the risks of the procedure including but not limited to bleeding, infection, injury to other structures, need for further procedures, stent irritation, and the risk of anesthesia. He is willing to proceed. Procedure: After informed consent was obtained the patient was brought back to the operating room and placed in supine position. A time out was performed. General anesthesia was administered and an LMA was placed. He was then placed in the lithotomy position. He was prepped and draped in the usual sterile fashion. Cystoscopy was performed. The anterior urethra was normal. There was no evidence of bladder tumors. The ureteral orifices were in the normal orthotopic position. The Sensor wire was placed in the right ureteral orifice and brought into the kidney under fluoroscopic guidance. The ureter was gently dilated with the 8/10 Ukrainian ureteral dilator. I then advanced the semirigid ureteroscope into the ureter. The stone was fragmented using the 365 micron laser fiber into small pieces. The stone fragments were basket extracted and dropped in the bladder. A 4.8 Ukrainian by 28cm JJ stent was then placed with good curl seen in the kidney and the bladder. The dangle string was left intact. The bladder was drained. The string was adhered to the penis using a Tegaderm. None of the stone fragments came out the bladder. The patient was then awakened from general anesthesia and brought to recovery room in good condition. All sponge, needle, and instrument counts were correct.
--- NOTE | 2018-04-13 18:48 | Anesthesia Evaluation Post Op ---
Date of Encounter: 04/13/18 Time of Encounter: 18:10 - Discharge PostOp Status: Transfer Patient to floor (Patient's vital signs have been reviewed. Patient is stable postoperatively and has adequately recovered from anesthesia. Patient is determined to have stable airway patency and respiratory function including respiratory rate and oxygen saturation. Patient has a stable heart rate, blood pressure and adequate hydration. Patients mental status is acceptable. Patients temperature is appropriate. Pain and nausea are adequately controlled.)
[2018-04-13] MEDS ORDERED: traZODone 50 MG TABLET PO SCH ×2 (21:00)
[2018-04-13] MEDS: Gabapentin 400 MG CAPSULE PO SCH (22:01)
[2018-04-14] MEDS: 0.9 % Sodium Chloride 1,000 ML IVC SCH (04:08)
[2018-04-14 07:08] LABS: Basophils % 0.2 %; Eosinophils % 0.1 %; Hematocrit 37.9 % (37.5-50.1); Immature Granulocytes % 0.5 % (0-4); Lymphocytes # 0.8 K/mcL (0.6-4.6); Lymphocytes % 9.7 %; Mean Corpuscular HGB Conc 34.3 g/dL (31.6-35.5); Mean Corpuscular Hemoglobin 30.7 pg (28.0-33.3); Mean Corpuscular Volume 89.4 fL (83.0-100.0); Mean Platelet Volume 10.6 fL (9.4-12.4); Monocytes # 0.4 K/mcL (0.0-1.3); Monocytes % 4.3 %; Neutrophils # 6.9 K/mcL (1.6-8.9); Platelet Count 186 K/mcL (140-400); Red Blood Count 4.24 M/mcL (4.19-5.50); Red Cell Distribution Width 12.3 % (11.5-14.5); Segmented Neutrophils % 85.2 %
[2018-04-14 07:57] LABS: BUN/Creatinine Ratio 21 (6-26); Blood Urea Nitrogen 19 mg/dL (6-20); Calcium 8.6 mg/dL (8.6-10.3); Carbon Dioxide 22 mEq/L (23-29); Chloride 108 mEq/L (98-107); Glucose 120 mg/dL (70-105); Osmolality,Calculated 289 (280-300); Potassium 4.4 mEq/L (3.5-5.1); Sodium 138 mEq/L (136-145); eGFR For Non-African Americans > 60 (> 60)
--- NOTE | 2018-04-14 08:05 | Urology Progress Note ---
Date of Encounter: 04/14/18 Time of Encounter: 08:04 - Assessment and Plan (1) Right distal ureteral calculus Current Visit: Yes Status: Acute Assessment and plan: Postoperative day #1 status post right ureteroscopy. He is doing well. He can be discharged home today. He can remove his stent in 3 days. I will have him follow-up with me in about 3-4 weeks for a checkup. Progress Note Narrative: Postop day #1 status post right ureteroscopy, laser lithotripsy, and stent placement. He is doing well. Objective Initial Vital Signs Temp Pulse Resp BP Pulse Ox 98.0 F 110 18 118/79 100 04/13/18 06:44 04/13/18 06:44 04/13/18 06:44 04/13/18 06:44 04/13/18 06:44 - General physical appearance Present: well developed, well nourished, no distress - Respiratory Present: normal respiratory effort - Labs 04/14/18 06:29 04/14/18 06:29 Diabetes panel 04/13/18 04/14/18 Range/Units 07:13 06:29 Sodium 140 138 (136-145) mEq/L Potassium 3.7 4.4 (3.5-5.1) mEq/L Chloride 101 108 H (98-107) mEq/L Carbon Dioxide 29 22 L (23-29) mEq/L BUN 20 19 (6-20) mg/dL Creatinine 1.13 0.89 (0.70-1.30) mg/dL Glucose 96 120 H (70-105) mg/dL Calcium 9.7 8.6 (8.6-10.3) mg/dL AST 16 (13-39) Units/L ALT 13 (7-52) Units/L Alkaline Phosphatase 68 (34-104) Units/L Albumin 4.9 (3.5-5.7) g/dL Calcium panel 04/13/18 04/14/18 Range/Units 07:13 06:29 Calcium 9.7 8.6 (8.6-10.3) mg/dL Albumin 4.9 (3.5-5.7) g/dL Pituitary panel 04/13/18 04/14/18 Range/Units 07:13 06:29 Sodium 140 138 (136-145) mEq/L Potassium 3.7 4.4 (3.5-5.1) mEq/L Chloride 101 108 H (98-107) mEq/L Carbon Dioxide 29 22 L (23-29) mEq/L BUN 20 19 (6-20) mg/dL Creatinine 1.13 0.89 (0.70-1.30) mg/dL Glucose 96 120 H (70-105) mg/dL Calcium 9.7 8.6 (8.6-10.3) mg/dL Adrenal panel 04/13/18 04/14/18 Range/Units 07:13 06:29 Sodium 140 138 (136-145) mEq/L Potassium 3.7 4.4 (3.5-5.1) mEq/L Chloride 101 108 H (98-107) mEq/L Carbon Dioxide 29 22 L (23-29) mEq/L BUN 20 19 (6-20) mg/dL Creatinine 1.13 0.89 (0.70-1.30) mg/dL Glucose 96 120 H (70-105) mg/dL Calcium 9.7 8.6 (8.6-10.3) mg/dL Total Bilirubin 0.9 (0.3-1.0) mg/dL AST 16 (13-39) Units/L ALT 13 (7-52) Units/L Alkaline Phosphatase 68 (34-104) Units/L Albumin 4.9 (3.5-5.7) g/dL - VTE Reasons for not Prescribing Prophylaxis: Treatment not Indicated - Low risk for VTE Consult Discharge Plan - Plan Referrals: NONE,PCP [Primary Care Provider] -
[2018-04-14] MEDS: Gabapentin 400 MG CAPSULE PO SCH (08:28)
--- NOTE | 2018-04-14 09:40 | Discharge Summary ---
- NOTES TO OUTPATIENT PROVIDER Notes to Outpatient Provider: Patient was admitted for right flank pain and was noted to have 5 mm distal right ureteral calculus causing mild proximal hydroureteronephrosis. Urinalysis +ve for nitrite and LE. Underwent Right ureteroscopy, laser lithotripsy, basket stone extraction, and stent placement u neventfully on 04/14 and discharged home on 04/15 with PO Cipro 500mg BID for 1 week. Stent to be removed in 3 days and follow up in 3-4 weeks as outpatient with Urology. OF note, he developed allergic reaction to IV Rocephin in the form of SOB and eyelid swelling which was appropriately treated in the ED. Orders not resulted at time of discharge: Pending orders 04/13/18 08:35 Drug Screen, Urine [UCHEM] Stat Date of Encounter: 04/14/18 Time of Encounter: 07:45 - Discharge Diagnosis (1) Mood disorder Priority: Secondary Status: Acute (2) Right distal ureteral calculus Priority: Primary Status: Acute (3) Hydroureteronephrosis Priority: Secondary Status: Acute (4) Allergy to antibiotic Priority: Secondary Status: Acute Hospital course: Mr. Hodge is a 37 year old male with hx of nephrolithiasis was admitted for right flank pain and was noted to have 5 mm distal right ureteral calculus causing mild proximal hydroureteronephrosis. Urinalysis +ve for nitrite and LE. Underwent Right ureteroscopy, laser lithotripsy, basket stone extraction, and stent placement uneventfully on 04/14 and discharged home on 04/15 with PO Cipro 500mg BID for 1 week. Stent to be removed in 3 days and follow up in 3-4 weeks as outpatient with Urology. OF note, he developed allergic reaction to IV Rocephin in the form of SOB and eyelid swelling which was appropriately treated in the ED. Discharge discussed with: patient, nurse - Time Spent with Patient Total time spent providing and/or coordinating discharge services: 31 mins - Discharge Medications Prescriptions: Acetaminophen [Tylenol Arthritis] 650 mg PO Q6H #12 tablet.er Ciprofloxacin [Cipro] 500 mg PO BID 7 Days #14 tablet Home Medications: Gabapentin [Neurontin] 800 mg PO TID 02/19/16 [History] clonazePAM [Klonopin] 1 mg PO TID PRN 02/19/16 [History] Duloxetine HCl [Cymbalta] 60 mg PO DAILY 04/13/18 [History] traZODone [TraZODone] 50 mg PO HS 04/13/18 [History] Acetaminophen [Tylenol Arthritis] 650 mg PO Q6H #12 tablet.er 04/14/18 [Rx] Ciprofloxacin [Cipro] 500 mg PO BID 7 Days #14 tablet 04/14/18 [Rx] Allergies/Adverse Reactions: Allergy/AdvReac Type Severity Reaction Status Date / Time ceftriaxone [From Rocephin] Allergy Itching Verified 04/13/18 10:23 Date of admission: 04/13/18 11:28 Primary care physician: PCP NONE Consults: 04/13/18 09:45 Consult to Urology [CONS] Stat Consulting Provider: Urology Na Reason for Consult: nephrolithiasis, mild hydroureteronephrosis, elevated nitrites concern for infected renal stone Call Completed: Yes - Constitutional Vitals: Temp Pulse Resp BP Pulse Ox 98.0 F 69 17 106/68 99 04/14/18 07:17 04/14/18 07:17 04/14/18 07:17 04/14/18 07:17 04/14/18 07:17 Exam: General: Alert and oriented, not in acute distress. Cardiovascular:Normal S1 & S2, No JVD. Pulse regular. Lungs: clear to auscultation, no wheezes/rales Abdomen:Soft, non-tender, no rigidity. : Mild R CVA tenderness but improved Neurological:Normal cognition and motor skills. Non-focal - Patient Status Disposition: Home, Self-Care Condition: Fair Functional capacity at discharge: independent ambulation Overall status at discharge: patient is progressing back to baseline - Discharge Instructions Instructions: Urinary Tract Infection in Men (DC) Follow Up With: NONE,PCP [Primary Care Provider] - Karan Evans MD [Partnered Physician] - Additional Instructions: Stent removal in 3 days Follow up with Urology in 3-4 weeks PO CIpro 500mg BID for 7 days - Diet and Activity Activity: resume usual activities as tolerated Diet: advance to your usual diet - VTE Reasons for not Prescribing Prophylaxis: Treatment not Indicated - Low risk for VTE
[2018-04-14 11:16] VITALS: BP 119/73
== END 2018-04-14 11:28 | disposition home or self-care (01) ==
LOC: 2ANU 06:40 → EMEROOARM 06:40 → SUATTDRO 11:28 → 2ANU 11:50
PROVIDERS: ADMIT Hospitalist; ATTEND Internal Medicine